=== PATIENT | male | born 1940 | race Caucasian/White ===

== ENCOUNTER 2016-11-03 13:49 | Emergency (ER) | payer OTHER ==
--- NOTE | 2016-11-03 14:19 | ED EKG INTERP ---
EKG Interpretation - EKG Time of EKG reading by physician:: 13:59 EKG Read and Signed by:: Juany Hernandez EKG Interpretation (*Must complete 3 of following elements*): Abnormal Rate: 62 (septal infarct, age undetermined) Rhythm: sinus rhythm with 1st degree AV block Attestation - Scribe Verification/Attestation Scribe:: Amber Sarmiento Acting as Scribe for:: Juany Hernandez Scribe documention review:: This chart was documented by a scribe and accurately reflects the service the provider performed and the decisions made by the provider.
[2016-11-03] MEDS ORDERED: NS 1,000 ML IV ONE (14:45)
--- NOTE | 2016-11-03 14:47 | PROVIDER DOCUMENTATION ---
HPI-General Adult - General Source: patient - History of Present Illness -Gen Adult Nature of Presenting Problems: Pt is a 76 yom who came to the ED with a cc of passing out. Pt reports he was upstairs because his is in the hospital and he felt weak and sat down. Pt son tried waking him up and he would not respond. Pt reports it felt like he was in a daze. Pt reports he has not been eating normal this week and hasn't eaten today. Pt reports he has thyroid problems and got his thyroid taken out in 2009. Location of Pain/Injury: reports: none Pain Radiation: reports: no radiation Quality of Pain: reports: none Onset/Duration: reports: abrupt Timing: reports: improving Context/Activities at Onset: reports: recent emotional stress Associated Symptoms: reports: syncope, weakness Similar Symptoms Previously?: No Recently seen or treated by another doctor?: No <Amber Sarmiento - Last Filed: 11/03/16 16:38> <Juany Hernandez - Last Filed: 11/03/16 17:05> - General Chief Complaint: Syncope Stated Complaint: SYNCOPE Time Seen by Provider: 11/03/16 14:20 Allergies/Adverse Reactions: Patient Allergies Allergy/AdvReac Type Severity Reaction Status Date / Time No Known Allergies Allergy Verified 11/03/16 14:27 Home Medications: Amlodipine [Norvasc] 2.5 mg PO DAILY 11/03/16 Levothyroxine [Synthroid] 150 mcg PO DAILY 11/03/16 Review of Systems - Adult - REVIEW OF SYSTEMS - ADULT Constitutional: denies: chills, fever Eyes: denies: blurred vision, double vision Ears, Nose, Mouth & Throat: reports: no symptoms reported Cardiovascular: reports: no symptoms reported Respiratory: denies: pleurisy, shortness of breath, wheezing Gastrointestinal: denies: nausea, vomiting Genitourinary: reports: no symptoms reported Musculoskeletal: reports: no symptoms reported Integumentary: reports: no symptoms reported Neurological: reports: dizziness/vertigo, syncope. denies: numbness, paresthesia, seizure Psychiatric: reports: no symptoms reported Endocrine: reports: no symptoms reported Hematologic/Lymphatic: reports: no symptoms reported Allergic/Immunologic: reports: no symptoms reported All Other Systems: Reviewed and Negative <Amber Sarmiento - Last Filed: 11/03/16 16:38> Past History - Adult - PAST MEDICAL HISTORY-ADULT Review of Records: reports: Old Records Reviewed, Nursing Assessment Review Cardiovascular: reports: HTN Endocrine/Immune: reports: thyroid disorder - PRIOR SURGERIES/PROCEDURES Surgical/Procedure History: reports: other (thyroidectomy ) - IMMUNIZATION STATUS Childhood Immunizations: See Nurse Assessment Flu Vaccine: See Nurse Assessment <Amber Sarmiento - Last Filed: 11/03/16 16:38> Physical Exam-General - PHYSICAL EXAM-ADULT Initial Vital Signs Reviewed: Yes - CONSTITUTIONAL General Appearance: appears well, alert, no apparent distress - EYES Eyes: PERRL/EOMI, pink conjunctivae - HEAD, EARS, NOSE, MOUTH & THROAT HENMT: normocephalic/atraumatic, moist mucous membranes, normal ENT inspection - NECK Neck: non-tender, full range of motion, normal inspection - RESPIRATORY Respiratory: chest non-tender, lungs clear, normal breath sounds - CARDIOVASCULAR Cardiovascular: normal peripheral pulses, regular rate, rhythm, no edema - GASTROINTESTINAL (ABDOMEN) Abdominal Exam: normal bowel sounds, non tender, soft - LYMPHATIC Lymphatic: no adenopathy - MUSCULOSKELETAL Back Exam: normal inspection, no CVA tenderness, no vertebral tenderness Extremity: normal range of motion, non-tender, normal gait - SKIN Integumentary: normal color, normal turgor, warm/dry - NEUROLOGIC Neurologic: grossly normal, no motor/sensory deficits - PSYCHIATRIC Psych/Mental Status: normal mood/affect, normal thought content, normal thought process, oriented x 3 <Amber Sarmiento - Last Filed: 11/03/16 16:38> Progress - PLAN OF CARE/RESULTS Progress/Plan/Lab Results: Vital Signs - 24 hr 11/03/16 11/03/16 13:51 14:32 Temperature 97.9 F Pulse Rate 68 66 Respiratory 18 13 Rate Blood Pressure 169/89 168/95 O2 Sat by Pulse 100 97 Oximetry Orders Category Date Time Status Cardiac Monitoring DIRECTED Care 11/03/16 14:36 Active Finger Stick Blood Sugar (ED) DIRECTED Care 11/03/16 14:36 Active Saline Loc NOW Care 11/03/16 14:36 Active CHEST-PORTABLE [RAD] Stat Exams 11/03/16 14:37 Ordered HEAD W/O CONTRAST [CT] Stat Exams 11/03/16 14:37 Ordered ALCOHOL BLOOD Stat Lab 11/03/16 14:36 Uncollected CBC WITH ELECTRONIC DIFF [HEME] Stat Lab 11/03/16 14:36 Uncollected COMPREHENSIVE METABOLIC PANEL [CHEM] Stat Lab 11/03/16 14:36 Uncollected TROPONIN T Stat Lab 11/03/16 14:36 Uncollected URINALYSIS W/POSS RFLX CULT [URINALYSIS] Stat Lab 11/03/16 14:36 Uncollected URINE DRUG SCREEN Stat Lab 11/03/16 14:36 Uncollected Pulse Oximetry Stat Oth 11/03/16 14:36 Active EKG [EKG] Stat Ther 11/03/16 14:36 Ordered - CONSULTS/PCP/HOSPITALIST Notification #1 *Consult/PCP/Hospitalist*: Dr. Corado Time Discussed: 16:39 Consult Disposition: Admit <Amber Sarmiento - Last Filed: 11/03/16 16:38> - PLAN OF CARE/RESULTS Progress/Plan/Lab Results: Laboratory Results - last 24 hr 11/03/16 11/03/16 11/03/16 14:50 14:50 15:00 WBC RBC Hgb Hct MCV MCH MCHC RDW Std Deviation Plt Count MPV Immature Gran % (Auto) Neut % (Auto) Lymph % (Auto) Fleming % (Auto) Eos % (Auto) Baso % (Auto) Immature Gran # (Auto) Neut # (Auto) Lymph # (Auto) Fleming # (Auto) Eos # (Auto) Baso # (Auto) Sodium Potassium Chloride Carbon Dioxide Anion Gap BUN Creatinine Estimated GFR/1.73 m2 BUN/Creatinine Ratio Glucose Calculated Osmolality Calcium Total Bilirubin AST ALT Alkaline Phosphatase Troponin T Total Protein Albumin Globulin Albumin/Globulin Ratio Urine Source CLEAN CATCH Urine Color STRAW Urine Turbidity CLEAR Urine pH 7.5 Ur Specific Lena 1.006 Urine Protein NEGATIVE Ur Glucose (Stick) NEGATIVE Ur Ketones (Stick) NEGATIVE Urine Blood NEGATIVE Urine Nitrite NEGATIVE Urine Bilirubin NEGATIVE Urobilinogen Dipstick NORMAL Urine Leukocytes NEGATIVE Urine WBC (Auto) <10 Urine RBC (Auto) <10 U Epithel Cells (Auto) <10 Urine Bacteria (Auto) NEGATIVE Urine Opiates Screen NONE DETECTED Ur Oxycodone Screen NONE DETECTED Ur Methadone, Qual NONE DETECTED Ur Barbiturates Screen NONE DETECTED Ur Phencyclidine Scrn NONE DETECTED Ur Amphetamines Screen NONE DETECTED U Benzodiazepines Scrn NONE DETECTED Urine Cocaine Screen NONE DETECTED U Cannabinoids Screen NONE DETECTED Plasma/Serum Ethyl Alc 11/03/16 11/03/16 11/03/16 15:00 15:00 15:00 WBC 3.89 L RBC 5.04 Hgb 16.0 Hct 47.8 MCV 94.8 MCH 31.7 H MCHC 33.5 RDW Std Deviation 13.0 Plt Count 192 MPV 10.5 H Immature Gran % (Auto) 0.0 Neut % (Auto) 58.3 Lymph % (Auto) 34.7 Fleming % (Auto) 6.2 Eos % (Auto) 0.5 Baso % (Auto) 0.3 Immature Gran # (Auto) 0.00 Neut # (Auto) 2.27 Lymph # (Auto) 1.35 Fleming # (Auto) 0.24 Eos # (Auto) 0.02 Baso # (Auto) 0.01 Sodium 132 L Potassium 3.9 Chloride 96 L Carbon Dioxide 27 Anion Gap 9 BUN 10 Creatinine 1.1 Estimated GFR/1.73 m2 > 60 BUN/Creatinine Ratio 9 Glucose 102 Calculated Osmolality 264 Calcium 9.4 Total Bilirubin 0.64 AST 21 ALT 19 Alkaline Phosphatase 90 Troponin T < 0.010 Total Protein 7.1 Albumin 4.3 Globulin 2.8 Albumin/Globulin Ratio 1.5 Urine Source Urine Color Urine Turbidity Urine pH Ur Specific Lena Urine Protein Ur Glucose (Stick) Ur Ketones (Stick) Urine Blood Urine Nitrite Urine Bilirubin Urobilinogen Dipstick Urine Leukocytes Urine WBC (Auto) Urine RBC (Auto) U Epithel Cells (Auto) Urine Bacteria (Auto) Urine Opiates Screen Ur Oxycodone Screen Ur Methadone, Qual Ur Barbiturates Screen Ur Phencyclidine Scrn Ur Amphetamines Screen U Benzodiazepines Scrn Urine Cocaine Screen U Cannabinoids Screen Plasma/Serum Ethyl Alc 11/03/16 15:00 WBC RBC Hgb Hct MCV MCH MCHC RDW Std Deviation Plt Count MPV Immature Gran % (Auto) Neut % (Auto) Lymph % (Auto) Fleming % (Auto) Eos % (Auto) Baso % (Auto) Immature Gran # (Auto) Neut # (Auto) Lymph # (Auto) Fleming # (Auto) Eos # (Auto) Baso # (Auto) Sodium Potassium Chloride Carbon Dioxide Anion Gap BUN Creatinine Estimated GFR/1.73 m2 BUN/Creatinine Ratio Glucose Calculated Osmolality Calcium Total Bilirubin AST ALT Alkaline Phosphatase Troponin T Total Protein Albumin Globulin Albumin/Globulin Ratio Urine Source CLEAN CATCH Urine Color STRAW Urine Turbidity CLEAR Urine pH 7.5 Ur Specific Lena 1.007 Urine Protein NEGATIVE Ur Glucose (Stick) NEGATIVE Ur Ketones (Stick) NEGATIVE Urine Blood NEGATIVE Urine Nitrite NEGATIVE Urine Bilirubin NEGATIVE Urobilinogen Dipstick NORMAL Urine Leukocytes NEGATIVE Urine WBC (Auto) <10 Urine RBC (Auto) <10 U Epithel Cells (Auto) <10 Urine Bacteria (Auto) NEGATIVE Urine Opiates Screen Ur Oxycodone Screen Ur Methadone, Qual Ur Barbiturates Screen Ur Phencyclidine Scrn Ur Amphetamines Screen U Benzodiazepines Scrn Urine Cocaine Screen U Cannabinoids Screen Plasma/Serum Ethyl Alc Orders Category Date Time Status Cardiac Monitoring DIRECTED Care 11/03/16 14:36 Active Finger Stick Blood Sugar (ED) DIRECTED Care 11/03/16 14:36 Active Saline Loc NOW Care 11/03/16 14:36 Active CHEST-PORTABLE [RAD] Stat Exams 11/03/16 14:37 Draft HEAD W/O CONTRAST [CT] Stat Exams 11/03/16 14:37 Draft ALCOHOL BLOOD Stat Lab 11/03/16 15:00 Completed CBC WITH ELECTRONIC DIFF [HEME] Stat Lab 11/03/16 15:00 Completed COMPREHENSIVE METABOLIC PANEL [CHEM] Stat Lab 11/03/16 15:00 Completed TROPONIN T Stat Lab 11/03/16 15:00 Completed UA NIMS W/REFLEX CULT [URINALYSIS] Stat Lab 11/03/16 15:00 Completed URINALYSIS W/POSS RFLX CULT [URINALYSIS] Stat Lab 11/03/16 14:50 Completed URINE DRUG SCREEN Stat Lab 11/03/16 14:50 Completed 0.9% Sodium Chloride Inj [Ns] 1,000 ml Med 11/03/16 14:45 Discontinued IV 999 mls/hr Pulse Oximetry Stat Oth 11/03/16 14:36 Active EKG [EKG] Stat Ther 11/03/16 14:36 Ordered Vital Signs Temp Pulse Resp BP Pulse Ox 11/03/16 16:56 68 18 130/98 99 11/03/16 14:32 66 13 168/95 97 11/03/16 13:51 97.9 F 68 18 169/89 100 No Known Allergies Allergy (Verified 11/03/16 14:27) Amlodipine [Norvasc] 2.5 mg PO DAILY 11/03/16 Levothyroxine [Synthroid] 150 mcg PO DAILY 11/03/16 I&O 11/02/16 11/03/16 11/04/16 06:59 06:59 06:59 Output Total 75 Balance -75 Laboratory 11/03/16 11/03/16 11/03/16 15:00 15:00 15:00 WBC RBC Hgb Hct MCV MCH MCHC RDW Std Deviation Plt Count MPV Immature Gran % (Auto) Neut % (Auto) Lymph % (Auto) Fleming % (Auto) Eos % (Auto) Baso % (Auto) Immature Gran # (Auto) Neut # (Auto) Lymph # (Auto) Fleming # (Auto) Eos # (Auto) Baso # (Auto) Sodium 132 L Potassium 3.9 Chloride 96 L Carbon Dioxide 27 Anion Gap 9 BUN 10 Creatinine 1.1 Estimated GFR/1.73 m2 > 60 BUN/Creatinine Ratio 9 Glucose 102 Calculated Osmolality 264 Calcium 9.4 Total Bilirubin 0.64 AST 21 ALT 19 Alkaline Phosphatase 90 Troponin T < 0.010 Total Protein 7.1 Albumin 4.3 Globulin 2.8 Albumin/Globulin Ratio 1.5 Urine Source CLEAN CATCH Urine Color STRAW Urine Turbidity CLEAR Urine pH 7.5 Ur Specific Lena 1.007 Urine Protein NEGATIVE Ur Glucose (Stick) NEGATIVE Ur Ketones (Stick) NEGATIVE Urine Blood NEGATIVE Urine Nitrite NEGATIVE Urine Bilirubin NEGATIVE Urobilinogen Dipstick NORMAL Urine Leukocytes NEGATIVE Urine WBC (Auto) <10 Urine RBC (Auto) <10 U Epithel Cells (Auto) <10 Urine Bacteria (Auto) NEGATIVE Urine Opiates Screen Ur Oxycodone Screen Ur Methadone, Qual Ur Barbiturates Screen Ur Phencyclidine Scrn Ur Amphetamines Screen U Benzodiazepines Scrn Urine Cocaine Screen U Cannabinoids Screen Plasma/Serum Ethyl Alc 11/03/16 11/03/16 11/03/16 15:00 15:00 14:50 WBC 3.89 L RBC 5.04 Hgb 16.0 Hct 47.8 MCV 94.8 MCH 31.7 H MCHC 33.5 RDW Std Deviation 13.0 Plt Count 192 MPV 10.5 H Immature Gran % (Auto) 0.0 Neut % (Auto) 58.3 Lymph % (Auto) 34.7 Fleming % (Auto) 6.2 Eos % (Auto) 0.5 Baso % (Auto) 0.3 Immature Gran # (Auto) 0.00 Neut # (Auto) 2.27 Lymph # (Auto) 1.35 Fleming # (Auto) 0.24 Eos # (Auto) 0.02 Baso # (Auto) 0.01 Sodium Potassium Chloride Carbon Dioxide Anion Gap BUN Creatinine Estimated GFR/1.73 m2 BUN/Creatinine Ratio Glucose Calculated Osmolality Calcium Total Bilirubin AST ALT Alkaline Phosphatase Troponin T Total Protein Albumin Globulin Albumin/Globulin Ratio Urine Source Urine Color Urine Turbidity Urine pH Ur Specific Lena Urine Protein Ur Glucose (Stick) Ur Ketones (Stick) Urine Blood Urine Nitrite Urine Bilirubin Urobilinogen Dipstick Urine Leukocytes Urine WBC (Auto) Urine RBC (Auto) U Epithel Cells (Auto) Urine Bacteria (Auto) Urine Opiates Screen NONE DETECTED Ur Oxycodone Screen NONE DETECTED Ur Methadone, Qual NONE DETECTED Ur Barbiturates Screen NONE DETECTED Ur Phencyclidine Scrn NONE DETECTED Ur Amphetamines Screen NONE DETECTED U Benzodiazepines Scrn NONE DETECTED Urine Cocaine Screen NONE DETECTED U Cannabinoids Screen NONE DETECTED Plasma/Serum Ethyl Alc 11/03/16 14:50 WBC RBC Hgb Hct MCV MCH MCHC RDW Std Deviation Plt Count MPV Immature Gran % (Auto) Neut % (Auto) Lymph % (Auto) Fleming % (Auto) Eos % (Auto) Baso % (Auto) Immature Gran # (Auto) Neut # (Auto) Lymph # (Auto) Fleming # (Auto) Eos # (Auto) Baso # (Auto) Sodium Potassium Chloride Carbon Dioxide Anion Gap BUN Creatinine Estimated GFR/1.73 m2 BUN/Creatinine Ratio Glucose Calculated Osmolality Calcium Total Bilirubin AST ALT Alkaline Phosphatase Troponin T Total Protein Albumin Globulin Albumin/Globulin Ratio Urine Source CLEAN CATCH Urine Color STRAW Urine Turbidity CLEAR Urine pH 7.5 Ur Specific Lena 1.006 Urine Protein NEGATIVE Ur Glucose (Stick) NEGATIVE Ur Ketones (Stick) NEGATIVE Urine Blood NEGATIVE Urine Nitrite NEGATIVE Urine Bilirubin NEGATIVE Urobilinogen Dipstick NORMAL Urine Leukocytes NEGATIVE Urine WBC (Auto) <10 Urine RBC (Auto) <10 U Epithel Cells (Auto) <10 Urine Bacteria (Auto) NEGATIVE Urine Opiates Screen Ur Oxycodone Screen Ur Methadone, Qual Ur Barbiturates Screen Ur Phencyclidine Scrn Ur Amphetamines Screen U Benzodiazepines Scrn Urine Cocaine Screen U Cannabinoids Screen Plasma/Serum Ethyl Alc - REASSESSMENT Reassessment #1 Time Reassessed: 17:01 Status: unchanged (Pt has been stable and asymptomatic after ED arrival. I set up his transfer to ER and the accepting physician is Dr. Corado. But pt refused to go and he wants to be with his who was diagnosed pancreatic cancer. Pt's son reviewed the CT image with me and and tried to convince him to bew transferred. But pt declined transfer and signed AMA, with understanding the risks they are taking, which include bleeding from inside of the meningoma, and this can result in .) <Juany Hernandez - Last Filed: 11/03/16 17:05> Departure - Departure Time of Disposition Order: 16:38 Certified Medical Emergency: Emergent - Critical Care Note Total Time (mins): 30 Critical Care Statement: This patient required my direct personal management to treat or rule out processes, the absence of which, could potentiallly result in sudden, clinically significant life or limb threatening deterioration. <Amber Sarmiento - Last Filed: 11/03/16 16:38> <Juany Hernandez - Last Filed: 11/03/16 17:05> - Departure DIAGNOSIS: Meningioma Disposition: AGAINST MEDICAL ADVICE 07 Condition: Stable Referrals: Winston Darling [Primary Care Provider] - Attestation - Scribe Verification/Attestation Scribe:: Amber Sarmiento Acting as Scribe for:: Juany Hernandez Scribe documention review:: This chart was documented by a scribe and accurately reflects the service the provider performed and the decisions made by the provider. <Amber Sarmiento - Last Filed: 11/03/16 16:38> Physician Attestation
[2016-11-03 15:11] LABS: MANUAL DIFF NEEDED? NO
[2016-11-03 15:11] LABS: URINE CULTURE NEEDED? NO; URINE MICRO REVIEW NEEDED? NO; URINE SOURCE CLEAN CATCH
[2016-11-03 15:17] LABS: BASO% 0.3 % (0.0-0.8); EOS# 0.02 X1000 (0.0-0.7); EOS% 0.5 % (0.0-10.0); HEMATOCRIT 47.8 % (42.0-52.0); LYMPH# 1.35 X1000 (1.2-3.4); LYMPH% 34.7 % (20.5-51.1); MCH 31.7 PG (27-31); MCHC 33.5 g/dL (33-37); MCV 94.8 FL (81-99); MONO# 0.24 X1000 (0.11-0.59); MONO% 6.2 % (1.7-9.3); MPV 10.5 FL (7.4-10.4); NEUT% 58.3 % (42.2-75.2); PLT 192 X1000 (130-400); RBC 5.04 XMIL (4.7-6.1)
[2016-11-03 15:19] LABS: BILIRUBIN URINE NEGATIVE (NEGATIVE); BLOOD URINE NEGATIVE (NEGATIVE); COLOR STRAW; GLUCOSE URINE NEGATIVE (NEGATIVE); LEUKOCYTES URINE NEGATIVE (NEGATIVE); NITRITE URINE NEGATIVE (NEGATIVE); PH URINE 7.5; PROTEIN URINE NEGATIVE (NEGATIVE); SP GRAVITY URINE 1.006; TURBIDITY URINE CLEAR (CLEAR); UR EPITHELIAL CELLS <10 /HPF (<10); URINE BACTERIA NEGATIVE /HPF; URINE RBC <10 /HPF (<10); URINE WBC <10 /HPF (<10); UROBILINOGEN URINE NORMAL (NORMAL)
--- NOTE | 2016-11-03 15:22 | Diag Imaging Result Document ---
PROCEDURE NAME: CHEST-PORTABLE - 11/03/2016 CHEST, SINGLE VIEW: INDICATION: Altered mental status. FINDINGS: There is cardiomegaly. The pulmonary vasculature is not congested. No acute infiltrates or effusions are identified. There is an old left posterolateral rib fracture. IMPRESSION: 1. Cardiomegaly. 2. No acute abnormalities.
[2016-11-03 15:29] LABS: UR AMPHETAMINES QUAL NONE DETECTED (NONE DETECT); UR BARBITUATES QUAL NONE DETECTED (NONE DETECT); UR BENZODIAZEPIN QUAL NONE DETECTED (NONE DETECT); UR CANNABINOIDS QUAL NONE DETECTED (NONE DETECT); UR COCAINE QUAL NONE DETECTED (NONE DETECT); UR METHADONE QUAL NONE DETECTED (NONE DETECT); UR OPIATES QUAL NONE DETECTED (NONE DETECT); UR OXYCODONE QUAL NONE DETECTED (NONE DETECT); UR PCP QUAL NONE DETECTED (NONE DETECT)
--- NOTE | 2016-11-03 15:41 | Diag Imaging Result Document ---
PROCEDURE NAME: HEAD W/O CONTRAST - 11/03/2016 CT HEAD WITHOUT CONTRAST: COMPARISON: None available. FINDINGS: There is a densely calcified extra-axial mass in the parafalcine region near the skull apex consistent with a parafalcine meningioma. It measures 3.2 x 2.8 cm axially. It is abutting the posterior frontal and parietal lobes on the right. There are adjacent low-density changes in the brain parenchyma suggesting adjacent gliosis or perhaps mild vasogenic edema. No other discrete intracranial mass or intracranial hemorrhage is appreciated. There is no hydrocephalus. There is no evidence of acute infarct, given the limited sensitivity of CT versus MRI. There is a prominent Virchow-Archie space at the inferior aspect of the left basal ganglion. IMPRESSION: 1. Prominent calcified meningioma in the parafalcine region on the right near the high convexity of the skull with adjacent low-density changes in the brain parenchyma. 2. No other definite acute pathology.
[2016-11-03 15:42] LABS: AGAP 9; ALBUMIN 4.3 g/dL (3.5-5.0); ALKALINE PHOSPHATASE 90 U/L (32-122); BUN 10 mg/dL (8-22); CALCIUM 9.4 mg/dL (8.8-10.2); CHLORIDE 96 mmol/L (98-107); COSMO 264; GOT 21 U/L (10-34); GPT 19 U/L (10-44); POTASSIUM 3.9 mmol/L (3.5-5.1); SODIUM 132 mmol/L (136-145); TCO2 27 mmol/L (25-35); TOTAL BILIRUBIN 0.64 mg/dL (0.20-1.00); TOTAL PROTEIN 7.1 g/dL (6.3-8.3)
[2016-11-03 16:18] LABS: URINE CULTURE NEEDED? NO; URINE MICRO REVIEW NEEDED? NO; URINE SOURCE CLEAN CATCH
[2016-11-03 16:29] LABS: BILIRUBIN URINE NEGATIVE (NEGATIVE); BLOOD URINE NEGATIVE (NEGATIVE); COLOR STRAW; GLUCOSE URINE NEGATIVE (NEGATIVE); LEUKOCYTES URINE NEGATIVE (NEGATIVE); NITRITE URINE NEGATIVE (NEGATIVE); PH URINE 7.5; PROTEIN URINE NEGATIVE (NEGATIVE); SP GRAVITY URINE 1.007; TURBIDITY URINE CLEAR (CLEAR); UROBILINOGEN URINE NORMAL (NORMAL)
[2016-11-03 16:32] LABS: UR EPITHELIAL CELLS <10 /HPF (<10); URINE BACTERIA NEGATIVE /HPF; URINE RBC <10 /HPF (<10); URINE WBC <10 /HPF (<10)
[2016-11-03 16:57] VITALS: BP 130/98
--- NOTE | 2016-11-06 06:35 | EKG Report ---
Test Performed on : 11/03/2016 1:59:32 PM Test Reason : AMS Blood Pressure : / mmHG Vent. Rate : 062 BPM Atrial Rate : 062 BPM P-R Int : 248 ms QRS Dur : 082 ms QT Int : 414 ms P-R-T Axes : 020 -20 -16 degrees QTc Int : 420 ms Sinus rhythm. with 1st degree AV block. Septal infarct , age undetermined Abnormal ECG No previous ECGs available Unconfirmed Result
== END 2016-11-03 16:59 | disposition left against medical advice (07) ==
LOC: ED 13:49
DX: D32.0 Benign neoplasm of cerebral meninges (principal); R94.31 Abnormal electrocardiogram [ECG] [EKG]; R55 Syncope and collapse; R53.1 Weakness; R42 Dizziness and giddiness; I10 Essential (primary) hypertension; E07.9 Disorder of thyroid, unspecified; Z79.899 Other long term (current) drug therapy
CPT/HCPCS: 70450; 71010; 80053; 81001; 84484; 85025; 93005; G0480; J7030